=== PATIENT | male | born 1990 | race Caucasian/White ===

== ENCOUNTER 2019-01-05 14:50 | Emergency (ER) | payer SELFPAY ==
[~2019-01-05] VITALS: Ht 182.9 cm; Wt 104.3 kg
--- NOTE | 2019-01-05 16:38 | PHYS DOC ---
Past Medical History Past Medical History: Other Additional Past Medical Histor: PILONIDAL CYST (YANI FRANCOIS APRN) Past Surgical History: Other Additional Past Surgical Histo: DENTAL (YANI FRANCOIS APRN) Additional Information: 1 PPD Alcohol Use: None Drug Use: Methamphetamine Social History Narrative: LAST USED JULY 2019 (YANI FRANCOIS APRN) Adult General Chief Complaint Chief Complaint: ABSCESS HPI HPI Patient is a 28 year old male who presents with a abscess on his tailbone. Currently at rehabilitation for meth. States the abscess started several days ago. Has had same abscess 4 times previously. Rates his pain as 5 out of 6 the character of the pain he describes as "just hurts". (YANI FRANCOIS APRN) Review of Systems Review of Systems Constitutional: Denies fever or chills [] Eyes: Denies change in visual acuity, redness, or eye pain [] HENT: Denies nasal congestion or sore throat [] Respiratory: Denies cough or shortness of breath [] Cardiovascular: No additional information not addressed in HPI [] GI: Denies abdominal pain, vomiting, bloody stools or diarrhea. Does report upset stomach recently but states he think it is just nerves from starting rehab. : Denies dysuria or hematuria [] Musculoskeletal: Denies back pain or joint pain [] Integument: Denies rash or skin lesions with exception of abscess on tailbone. Neurologic: Denies headache, focal weakness or sensory changes [] Endocrine: Denies polyuria or polydipsia [] Complete systems were reviewed and found to be within normal limits, except as documented in this note. (YANI FRANCOIS APRN) Current Medications Current Medications Current Medications Medications (Trade) Dose Ordered Sig/Heladio Start Time Stop Time Status Last Admin Dose Admin Lidocaine HCl (Lidocaine 1% 20ml Vial) 20 ml 1X ONCE 01/05/19 17:15 01/05/19 17:16 DC (YANI SWARTZ DO) Allergies Allergies Allergies Coded Allergies Type Severity Reaction Last Updated Verified morphine Allergy Intermediate 01/05/19 Yes (YANI SWARTZ DO) Physical Exam Physical Exam Constitutional: Well developed, well nourished, no acute distress, non-toxic appearance. [] HENT: Normocephalic, atraumatic, bilateral external ears normal, oropharynx moist, no oral exudates, nose normal. [] Eyes: PERRLA, EOMI, conjunctiva normal, no discharge. [] Neck: Normal range of motion, no tenderness, supple, no stridor. [] Cardiovascular:Heart rate regular rhythm, no murmur [] Lungs & Thorax: Bilateral breath sounds clear to auscultation [] Abdomen: Bowel sounds normal, soft, no tenderness, no masses, no pulsatile masses. [] Skin: Warm, dry, no erythema, no rash. Has pilonidal cyst on tailbone. Is erythematous, hot, and swollen. Back: No tenderness, no CVA tenderness. [] Extremities: No tenderness, no cyanosis, no clubbing, ROM intact, no edema. [] Neurologic: Alert and oriented X 3, normal motor function, normal sensory function, no focal deficits noted. [] Psychologic: Affect normal, judgement normal, mood normal. [] (YANI FRANCOIS APRN) Current Patient Data Vital Signs Vital Signs Date Time Temp Pulse Resp B/P (MAP) Pulse Ox O2 Delivery O2 Flow Rate FiO2 01/05/19 18:03 97 16 148/94 (112) 98 Room Air 01/05/19 15:26 98.0 98.0 (YANI SWARTZ DO) EKG EKG [] (YANI FRANCOIS APRN) Radiology/Procedures Radiology/Procedures Indication: Pilonidal Cyst Patient declined the use of lidocaine. No lidocaine was used. Washed the wound with iodine. Took an #11 blade scalpel and made a 2 cm vertical incision down the anatomical line. Opened the wound up to break open pus pockets. Large amounts of exudate was drained. I then packed the wound. Nursing staff placed a bandage on patient. No complications. (YANI FRANCOIS APRN) Course & Med Decision Making Course & Med Decision Making Pertinent Labs and Imaging studies reviewed. (See chart for details) Drained cyst. Will d/c home on antibiotics. (YANI FRANCOIS APRN) Dragon Disclaimer Dragon Disclaimer This electronic medical record was generated, in whole or in part, using a voice recognition dictation system. (YANI FRANCOIS APRN) Departure Departure Impression: Primary Impression: Pilonidal cyst with abscess Disposition: HOME, SELF-CARE Condition: STABLE Referrals: NO PCP (PCP) Additional Instructions: Follow up in 5-7 days to have packing removed with primary care doctor or come back to ER. Return to ER if symptoms worsen. Take all of antibiotic. Scripts Amoxicillin/Potassium Clav (AUGMENTIN 875-125 TABLET) 1 Each Tablet 1 TAB PO BID for 7 Days, #14 TAB Prov: YANI FRANCOIS APRN 01/05/19 Attending Signature Attending Signature I have reviewed the PA/HAND ROLLER's note and plan of care. I was available for consultation as needed during the patient's visit in the emergency department. I agree with the clinical impression, plan, and disposition. (YANI SWARTZ DO) YANI FRANCOIS APRN January 05, 2019 16:37 YANI SWARTZ DO January 06, 2019 11:03
[2019-01-05] MEDS: LIDOCAINE 1% Multi-Dose 20 ML VIAL. INJ ONE ×2 (17:10→17:15)
[2019-01-05] MEDS ORDERED: AMOX1TAB61 PO (17:42)
[2019-01-05 18:03] VITALS: BP 148/94
== END 2019-01-05 18:03 | disposition home or self-care (01) ==
LOC: ER 14:50
DX: L05.01 Pilonidal cyst with abscess (principal); K30 Functional dyspepsia; F17.200 Nicotine dependence, unspecified, uncomplicated; Z88.5 Allergy status to narcotic agent
CPT/HCPCS: 10080; 99283; 99284

== ENCOUNTER 2020-02-12 01:13 | Emergency (ER) | payer SELFPAY ==
[~2020-02-12 01:13] MED LIST: AMOX1TAB61 PO
== END 2020-02-12 04:44 | disposition left against medical advice (07) ==
LOC: ER 01:13
DX: R51 Headache (principal); Z53.21 Procedure and treatment not carried out due to patient leaving prior to being seen by health care provider